=== PATIENT | male | born 1985 | race Caucasian/White ===

== ENCOUNTER → 2017-09-08 | Outpatient (CLI) | payer OTHER ==
--- NOTE | 2017-09-08 10:58 | Diagnostic Imaging Report ---
Three views of the right knee. INDICATION: Right knee pain. Injury. FINDINGS: No fracture, dislocation or radiopaque foreign body. No suprapatellar effusion seen. The articular surfaces appear intact. IMPRESSION: Unremarkable exam. Dictated by: Dictated on workstation # [id number]
== END ==
LOC: RAD 10:07
PROVIDERS: ATTEND Nurse Practitioner Family
DX: S89.91XA Unspecified injury of right lower leg, initial encounter (principal)
CPT/HCPCS: 73562

== ENCOUNTER → 2017-09-17 | Outpatient (CLI) | payer OTHER ==
--- NOTE | 2017-09-17 11:36 | Diagnostic Imaging Report ---
EXAMINATION: Magnetic resonance imaging of the right knee without intravenous contrast DATE: September 17, 2017. COMPARISON: Right knee radiographs September 08, 2017. INDICATION: 32-year-old male, right knee pain. TECHNIQUE: Multiplanar, multisequence non contrast enhanced MR imaging was accomplished. FINDINGS: MENISCI: There is a multiloculated ganglion cyst adjacent to the anterior horn of the medial meniscus most likely reflecting a parameniscal cyst measuring 16 x 8 x 9 mm in size. This is compatible with an adjacent tear of the anterior horn of the medial meniscus. The medial meniscus is otherwise intact. The lateral meniscus is intact. LIGAMENTS AND TENDONS: The anterior and posterior cruciate ligaments are intact. The medial collateral ligament is intact. The iliotibial band, mid third lateral capsular ligament, fibular collateral ligament, biceps femoris tendon and conjoined tendon are intact. The quadriceps tendon and patella ligament are intact. JOINT: There is a focal area of increased signal within the cartilage of the medial patellar facet without identified surface defect which may potentially correlate with an area of chondromalacia. The medial and lateral compartment cartilage is intact. There is no knee joint effusion, prominent synovitis, or intra-articular body. BONE: There is unremarkable bone marrow signal. Specifically, negative for fracture, osteomyelitis, osteonecrosis, or marrow replacing process. BURSAE AND SOFT TISSUES: There is no Kaye's cyst. There is a ganglion cyst adjacent to the posterior knee joint capsule measuring 8 x 4 x 9 mm in size. IMPRESSION: 1. Multiloculated parameniscal cyst adjacent to the anterior horn of the medial meniscus compatible with an adjacent tear of the anterior horn of the medial meniscus with the parameniscal cyst measuring 16 x 8 x 9 mm in size. 2. Intact lateral meniscus. 3. Intact anterior and posterior cruciate ligaments. Additional ligaments and tendons are intact. 4. Small focal area of increased signal in the cartilage of the medial patellar facet without identified overlying surface defect. This may potentially correlate with an area of chondromalacia. Otherwise intact articular cartilage. No knee joint effusion. 5. No acute fracture or bone contusion. Dictated by: Dictated on workstation # [id number]
== END ==
LOC: RAD 09:03
PROVIDERS: ATTEND Nurse Practitioner Family
DX: M23.031 Cystic meniscus, other medial meniscus, right knee (principal)
CPT/HCPCS: 73721

== ENCOUNTER → 2019-03-11 | Outpatient (CLI) | payer OTHER ==
--- NOTE | 2019-03-11 14:40 | Diagnostic Imaging Report ---
PROCEDURE: CT head without contrast. TECHNIQUE: Multiple contiguous axial images were obtained through the brain without the use of intravenous contrast. Auto Exposure Controls were utilized during the CT exam to meet ALARA standards for radiation dose reduction. INDICATION: Pos head pain, nausea, vomiting, dizziness with blurred vision. Exam compared with 07/27/2013. There is no hemorrhage, hydrocephalus, edema, mass, mass effect or evidence for elevated intracranial pressures. The orbits, sinuses and calvarium unremarkable. No acute finding. IMPRESSION: Stable normal CT head. Report was called to Christi/surveillance sensor officer of Nina Wright APRN by garrick at 2:39 p.m. Dictated by: Dictated on workstation # [id number]
== END ==
LOC: RAD 13:54
PROVIDERS: ATTEND Nurse Practitioner Family
DX: H53.8 Other visual disturbances (principal); R51 Headache; R11.2 Nausea with vomiting, unspecified
CPT/HCPCS: 70450

== ENCOUNTER 2021-01-03 13:01 | Emergency (ER) | payer OTHER ==
[~2021-01-03] VITALS: Ht 185 cm; Wt 90.7 kg
[2021-01-03 13:27] LABS: BASOPHILS # (AUTO) 0.1 10^3/uL (0.0-0.1); BASOPHILS % (AUTO) 1 % (0-10); EOSINOPHILS # (AUTO) 0.2 10^3/uL (0.0-0.3); EOSINOPHILS % (AUTO) 4 % (0-10); HEMATOCRIT 47 % (40-54); HEMOGLOBIN 15.5 g/dL (13.3-17.7); LYMPHOCYTES % (AUTO) 33 % (12-44); MEAN CORPUSCULAR HEMOGLOBIN 32 pg (25-34); MEAN CORPUSCULAR HGB CONC 33 g/dL (32-36); MEAN CORPUSCULAR VOLUME 95 fL (80-99); MEAN PLATELET VOLUME 10.1 fL (9.0-12.2); MONOCYTES # (AUTO) 0.8 10^3/uL (0.0-1.0); MONOCYTES % (AUTO) 13 % (0-12); NEUTROPHILS # (AUTO) 2.9 10^3/uL (1.8-7.8); NEUTROPHILS % (AUTO) 49 % (42-75); PLATELET COUNT 220 10^3/uL (130-400); WHITE BLOOD COUNT 5.9 10^3/uL (4.3-11.0)
[2021-01-03] MEDS ORDERED: IBUPROFEN 800 MG (MOTRIN) TAB PO STA (13:33)
[2021-01-03 13:39] LABS: ALBUMIN 4.3 GM/DL (3.2-4.5); CHLORIDE 104 MMOL/L (98-107); POTASSIUM 4.3 MMOL/L (3.6-5.0); SODIUM 139 MMOL/L (135-145)
[2021-01-03 13:40] LABS: CALCIUM 8.9 MG/DL (8.5-10.1)
[2021-01-03 13:41] LABS: BILIRUBIN,URINE NEGATIVE (NEGATIVE); CLARITY,URINE CLEAR; COLOR,URINE DARK YELLOW; GLUCOSE, URINE (UA) NEGATIVE (NEGATIVE); KETONES,URINE NEGATIVE (NEGATIVE); LEUKOCYTE ESTERASE ,URINE NEGATIVE (NEGATIVE); NITRITE,URINE NEGATIVE (NEGATIVE); PH,URINE 5.5 (5-9); PROTEIN,URINE NEGATIVE (NEGATIVE)
[2021-01-03 13:42] LABS: GLUCOSE 83 MG/DL (70-105); TOTAL PROTEIN 7.4 GM/DL (6.4-8.2)
[2021-01-03 13:43] LABS: BILIRUBIN,TOTAL 1.4 MG/DL (0.1-1.0); CARBON DIOXIDE 25 MMOL/L (21-32)
[2021-01-03 13:45] LABS: ALKALINE PHOSPHATASE 97 U/L (40-136); CREATININE SERUM 1.09 MG/DL (0.60-1.30); GFR ESTIMATED > 60
[2021-01-03 13:46] LABS: BUN/CREATININE RATIO 14
[2021-01-03 13:47] LABS: BACTERIA,URINE NEGATIVE /HPF
[2021-01-03 13:48] LABS: ALANINE AMINOTRANSFERASE 19 U/L (0-55)
--- NOTE | 2021-01-03 13:51 | ED GU-Male ---
General Chief Complaint: Male Reproductive Stated Complaint: L TESTICLE PAIN Nursing Triage Note: ARRIVED VIA AMB TO ROOM 08. X2 WEEKS HE HAS HAD LEFT TESTICLE SWELLING AND PAIN. IS ON 2ND DOSE OF ROCEPHIN AND DOXY AND STATES IT IS WORSE. [facility] FOR A ULTRA SOUND. History of Present Illness Date Seen by Provider: Jan 03, 2021 Time Seen by Provider: 13:05 Initial Comments 35-year-old male presents for left testicular pain that is been present for approximately 2 weeks. He received 1 IM injection of Rocephin and started doxycycline at that time. Hip symptoms were not improving and 4 days ago he was started on a 2nd round of doxycycline. He had increased pain while trying to walk today that is radiating down his left leg. He reports having epididymitis in the past several years ago. He denies any dysuria or hematuria. No ylla-lvh-zbtmhit pain medicine prior to arrival. Patient denies any history of STIs, hernia or testicular torsion in the past. He has not done any heavy lifting or aggressive physical activity. Timing/Duration: intermittent Severity/Quality: moderate Location: scrotal Radiation: groin (left), other (Left leg) Activities at Onset: none Prior Genitourinary Problems: none Sexual [place] History: single partner Associated Symptoms: denies symptoms Allergies and Home Medications Allergies Coded Allergies: No Known Drug Allergies (Unverified , 01/03/21) Patient Home Medication List Home Medication List Reviewed: Yes Review of Systems Review of Systems Constitutional: no symptoms reported, see HPI Gastrointestinal: no symptoms reported, see HPI; No abdominal pain, No nausea, No vomiting Genitourinary: see HPI, pain (Left testicular) All Other Systemes Reviewed Negative Unless Noted: Yes Past Peufryk-Cmuipa-Hraknm Hx Past Med/Social Hx: Reviewed Nursing Past Med/Soc Hx Patient Social History Alcohol Use: Occasionally Uses Smoking Status: Former Smoker Recent Infectious Disease Expo: No Recent Hopitalizations: No Seasonal Allergies Seasonal Allergies: No Past Medical History Surgeries: Yes Orthopedic Respiratory: No Cardiac: No Neurological: No Genitourinary: No Gastrointestinal: No Musculoskeletal: No Endocrine: No HEENT: No Cancer: No Psychosocial: No Integumentary: No Physical Exam Vital Signs Vital Signs - First Documented 01/03/21 13:03 Temp 37.0 Pulse 72 Resp 16 B/P (MAP) 130/77 (94) Pulse Ox 97 O2 Delivery Room Air Capillary Refill : Less Than 3 Seconds Height, Weight, BMI Height: '" Weight: lbs. oz. kg; 26.00 BMI Method: General Appearance: WD/WN, no apparent distress Cardiovascular: normal peripheral pulses, regular rate, rhythm, no edema Respiratory: chest non-tender, lungs clear, normal breath sounds Gastrointestinal: normal bowel sounds, non tender, soft Male: normal genitalia; No inguinal tenderness; testicular tenderness (Left) Neurologic/Psychiatric: no motor/sensory deficits, alert, normal mood/affect, oriented x 3 Skin: normal color, warm/dry Progress/Results/Core Measures Suspected Sepsis Recent Fever Within 48 Hours: No Infection Criteria Present: Documented Infection New/Unexplained Altered Menta: No Sepsis Screen: No Definite Risk SIRS Temperature: Pulse: 72 Respiratory Rate: 16 Laboratory Tests 01/03/21 13:20: White Blood Count 5.9 Blood Pressure 130 /77 Mean: 94 Laboratory Tests 01/03/21 13:20: Creatinine 1.09, Platelet Count 220, Total Bilirubin 1.4H Results/Orders Lab Results Laboratory Tests Test 01/03/21 13:20 01/03/21 13:27 Range/Units White Blood Count 5.9 4.3-11.0 10^3/uL Red Blood Count 4.90 4.30-5.52 10^6/uL Hemoglobin 15.5 13.3-17.7 g/dL Hematocrit 47 40-54 % Mean Corpuscular Volume 95 80-99 fL Mean Corpuscular Hemoglobin 32 25-34 pg Mean Corpuscular Hemoglobin Concent 33 32-36 g/dL Red Cell Distribution Width 12.0 10.0-14.5 % Platelet Count 220 130-400 10^3/uL Mean Platelet Volume 10.1 9.0-12.2 fL Immature Granulocyte % (Auto) 0 % Neutrophils (%) (Auto) 49 42-75 % Lymphocytes (%) (Auto) 33 12-44 % Monocytes (%) (Auto) 13 H 0-12 % Eosinophils (%) (Auto) 4 0-10 % Basophils (%) (Auto) 1 0-10 % Neutrophils # (Auto) 2.9 1.8-7.8 10^3/uL Lymphocytes # (Auto) 2.0 1.0-4.0 10^3/uL Monocytes # (Auto) 0.8 0.0-1.0 10^3/uL Eosinophils # (Auto) 0.2 0.0-0.3 10^3/uL Basophils # (Auto) 0.1 0.0-0.1 10^3/uL Immature Granulocyte # (Auto) 0.0 0.0-0.1 10^3/uL Sodium Level 139 135-145 MMOL/L Potassium Level 4.3 3.6-5.0 MMOL/L Chloride Level 104 98-107 MMOL/L Carbon Dioxide Level 25 21-32 MMOL/L Anion Gap 10 5-14 MMOL/L Blood Urea Nitrogen 15 7-18 MG/DL Creatinine 1.09 0.60-1.30 MG/DL Estimat Glomerular Filtration Rate > 60 BUN/Creatinine Ratio 14 Glucose Level 83 70-105 MG/DL Calcium Level 8.9 8.5-10.1 MG/DL Corrected Calcium 8.7 8.5-10.1 MG/DL Total Bilirubin 1.4 H 0.1-1.0 MG/DL Aspartate Amino Transf (AST/SGOT) 23 5-34 U/L Alanine Aminotransferase (ALT/SGPT) 19 0-55 U/L Alkaline Phosphatase 97 40-136 U/L C-Reactive Protein High Sensitivity 0.02 0.00-0.50 MG/DL Total Protein 7.4 6.4-8.2 GM/DL Albumin 4.3 3.2-4.5 GM/DL Urine Color DARK YELLOW Urine Clarity CLEAR Urine pH 5.5 5-9 Urine Specific [place] >=1.030 1.016-1.022 Urine Protein NEGATIVE NEGATIVE Urine Glucose (UA) NEGATIVE NEGATIVE Urine Ketones NEGATIVE NEGATIVE Urine Nitrite NEGATIVE NEGATIVE Urine Bilirubin NEGATIVE NEGATIVE Urine Urobilinogen 0.2 < = 1.0 MG/DL Urine Leukocyte Esterase NEGATIVE NEGATIVE Urine RBC (Auto) NEGATIVE NEGATIVE Urine RBC NONE /HPF Urine WBC NONE /HPF Urine Crystals NONE /LPF Urine Bacteria NEGATIVE /HPF Urine Casts NONE /LPF Urine Mucus NEGATIVE /LPF Urine Culture Indicated NO My Orders Orders - ELAN MANDEL Cbc With Automated Diff (01/03/21 13:16) Comprehensive Metabolic Panel (01/03/21 13:16) Hs C Reactive Protein (01/03/21 13:16) Ua Culture If Indicated (01/03/21 13:16) Us Scrotum (Testicle) [id number] (01/03/21 13:33) Ibuprofen Tablet (Motrin Tablet) (01/03/21 13:33) Neis John Dna Urine Test (01/03/21 14:30) Chlamydia Trachomatis Urine (01/03/21 14:30) Vital Signs/I&O 01/03/21 01/03/21 13:03 14:34 Temp 37.0 37.0 Pulse 72 72 Resp 16 16 B/P (MAP) 130/77 (94) 130/77 (94) Pulse Ox 97 97 O2 Delivery Room Air Capillary Refill : Less Than 3 Seconds Blood Pressure Mean: 94 Diagnostic Imaging Diagonstic Imaging: Ultrasound Comments NAME: [facility] REC#: [id number] PT STATUS: DEP ER : 1985 PHYSICIAN: ELAN MANDEL ADMIT DATE: 01/03/21/ER Signed Date of Exam:01/03/21 US SCROTUM (Testicle) [id number] PROCEDURE: US Scrotum. TECHNIQUE: Multiple real-time grayscale images were obtained over the scrotum in various projections bilaterally. INDICATION: Left testicular pain for 2 weeks. The right testicle measures 5.5 x 2.6 x 3.5 cm and the left testicle measures 5.5 x 2.6 x 3.8 cm. Both testes show homogeneous echotexture. No discrete testicular mass is seen. There is blood flow to both testes. Epididymides are unremarkable. There are small bilateral hydroceles. No varicocele is detected. IMPRESSION: 1. No evidence of testicular mass or vascular compromise. 2. Small bilateral hydroceles. Dictated by: Dictated on workstation # [id number] Dict: 01/03/21 1449 Trans: 01/03/21 1553 [facility] [id number] Interpreted by: CARO HINSON MD Electronically signed by: CARO HINSON MD 01/03/21 1550 Reviewed: Reviewed by Me Departure Impression Primary Impression: Left testicular pain Disposition: 01 HOME, SELF-CARE Condition: Improved Departure-Patient Inst. Decision time for Depature: 14:25 Referrals: TAYLOR BENDER MD (PCP/Family) Primary Care Physician LORENZA ACEVEDO MD Patient Instructions: Epididymitis (DC) Add. Discharge Instructions: Appt with Dr. Rivera Mon 01/08 at 3:45 pm. If your symptoms improve, you can call and cancel your appt. Increase water intake 16 oz every 2 hours while awake. Alternate between Tylenol 650 mg and ibuprofen 600 mg every 4 hours for pain or swelling. Continue taking your antibiotics as prescribed. Follow-up with your primary care provider if symptoms are not improving or worsen. Return to the emergency department for new, urgent healthcare needs. All discharge instructions reviewed with patient and/or family. Voiced understanding. ELAN MANDEL Jan 03, 2021 13:51
[2021-01-03 14:34] VITALS: BP 130/77
--- NOTE | 2021-01-03 14:53 | Diagnostic Imaging Report ---
PROCEDURE: US Scrotum. TECHNIQUE: Multiple real-time grayscale images were obtained over the scrotum in various projections bilaterally. INDICATION: Left testicular pain for 2 weeks. The right testicle measures 5.5 x 2.6 x 3.5 cm and the left testicle measures 5.5 x 2.6 x 3.8 cm. Both testes show homogeneous echotexture. No discrete testicular mass is seen. There is blood flow to both testes. Epididymides are unremarkable. There are small bilateral hydroceles. No varicocele is detected. IMPRESSION: 1. No evidence of testicular mass or vascular compromise. 2. Small bilateral hydroceles. Dictated by: Dictated on workstation # [id number]
== END 2021-01-03 14:34 | disposition home or self-care (01) ==
LOC: EDUNIT# 13:01 → ER 13:02
DX: N50.812 Left testicular pain (principal); Z87.891 Personal history of nicotine dependence
CPT/HCPCS: 36415; 76870; 80053; 81000; 85025; 86141; 87491; 87591

== ENCOUNTER 2022-08-02 08:31 | Day surgery (SDC) | payer OTHER ==
[~2022-08-02] VITALS: Ht 185.4 cm; Wt 90.7 kg
[2022-08-02] VITALS (9 sets, daily range): BP systolic 120–148; BP diastolic 52–82
[2022-08-02] MEDS ORDERED: HOLD METFORMIN - RECEIVED CONTRAST 20 ML VIAL IV SCH (09:30)
[2022-08-02] MEDS ORDERED: IOHEXOL 350 MG/ML 100 ML (OMNIPAQUE 350) VIAL IV ONE (09:30)
[2022-08-02] MEDS ORDERED: NS 100 ML (IVPB) BAG IV ONE (09:30)
--- NOTE | 2022-08-02 09:31 | ED Abdominal Pain ---
General Chief Complaint: Abdominal/GI Problems Stated Complaint: ABD PAIN Nursing Triage Note: c/o abdominal pain that started last night around midnight and lasted until around 4 am whe he finally was able to go back to sleep. sx included nausea, right lower abdominal pain, gas pain upper and lower. 5/10 on a pain scale currently. Source of Information: Patient Exam Limitations: No Limitations History of Present Illness Date Seen by Provider: Aug 02, 2022 Time Seen by Provider: 09:20 Initial Comments 37-year-old male presents the emergency department today for right lower abdominal pain. Symptoms started at about midnight and his mid lower abdominal pain and eventually settled in his right lower abdomen. He states the pain was severe at about 4 AM when it went off some. At that time was about an 8 out of 10. At the time of his presentation he rates it about a 3 out of 10. Described as sharp stabbing without radiation. No aggravating or alleviating factors. He has nausea without any vomiting. He states he feels like he has have a bowel movement but cannot tell. No testicular pain, penile symptoms. No changes in urination. He has never had similar symptoms in the past. Has had no surgeries. Allergies and Home Medications Allergies Coded Allergies: No Known Drug Allergies (Unverified , 01/03/21) Patient Home Medication List Home Medication List Reviewed: Yes Hydrocodone Bit/Acetaminophen (HYDROcodone/APAP 5 MG/325 MG TAB) 1 Tab Tab, 1 TAB PO Q8H PRN for PAIN-MODERATE (5-7) Prescribed by: DARIN LOPEZ on 08/02/22 [id number] Review of Systems Review of Systems Constitutional: no symptoms reported EENTM: No Symptoms Reported Respiratory: No Symptoms Reported Cardiovascular: No Symptoms Reported Gastrointestinal: Abdominal Pain, Nausea Genitourinary: No Symptoms Reported Musculoskeletal: no symptoms reported Skin: no symptoms reported Psychiatric/Neurological: No Symptoms Reported Endocrine: No Symptoms Reported Hematologic/Lymphatic: No Symptoms Reported Past Dqbofqy-Oixcxh-Piyxnn Hx Patient Social History Tobacco Use?: No Use of E-Cig and/or Vaping dev: No Substance use?: No Alcohol Use?: Yes Alcohol type: Beer, Hard Liquor Alcohol Frequency: Once in a while Pt feels they are or have been: No Immunizations Up To Date Influenza Vaccine Up-to-Date: No; Not Current First/Initial COVID19 Vaccinat: 2020 Second COVID19 Vaccination Joaquim: 2020 Third COVID19 Vaccination Date: 2020 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 Hand: moderntoi Seasonal Allergies Seasonal Allergies: No Past Medical History Surgery/Hospitalization HX: migraine sx left knee scope Surgeries: Yes Orthopedic Respiratory: No Cardiac: No Neurological: No Genitourinary: No Gastrointestinal: No Musculoskeletal: No Endocrine: No HEENT: No Cancer: No Psychosocial: No Integumentary: No Family Medical History Reviewed Nursing Family Hx No Pertinent Family Hx Physical Exam Vital Signs Vital Signs - First Documented 08/02/22 09:07 Temp 37.2 Pulse 66 Resp 18 B/P (MAP) 128/81 (97) Pulse Ox 97 O2 Delivery Room Air Capillary Refill : Less Than 3 Seconds Height/Weight/BMI Height: '" Weight: lbs. oz. kg; 26.00 BMI Method: General Appearance: WD/WN, no apparent distress HEENT: normal ENT inspection, pharynx normal Neck: non-tender, full range of motion, supple, normal inspection Respiratory: chest non-tender, lungs clear, normal breath sounds, no respiratory distress, no accessory muscle use Cardiovascular: regular rate, rhythm, no edema, no gallop, no JVD, no murmur Gastrointestinal: normal bowel sounds, soft, no organomegaly, tenderness (Tenderness palpation of right lower abdomen with voluntary guarding. No rebound tenderness. No mass organomegaly. No skin changes. Negative obturator, Rovsing, heel tap) Extremities: normal range of motion, non-tender, normal inspection, no pedal edema, no calf tenderness Back: normal inspection, no CVA tenderness, no vertebral tenderness Neurologic/Psychiatric: alert, normal mood/affect, oriented x 3 Skin: normal color, warm/dry Lymphatic: no adenopathy Progress/Results/Core Measures Results/Orders Lab Results Laboratory Tests Test 08/02/22 09:25 08/02/22 09:31 Range/Units White Blood Count 12.2 H 4.3-11.0 10^3/uL Red Blood Count 4.89 4.30-5.52 10^6/uL Hemoglobin 15.6 13.3-17.7 g/dL Hematocrit 45 40-54 % Mean Corpuscular Volume 93 80-99 fL Mean Corpuscular Hemoglobin 32 25-34 pg Mean Corpuscular Hemoglobin Concent 34 32-36 g/dL Red Cell Distribution Width 12.2 10.0-14.5 % Platelet Count 267 130-400 10^3/uL Mean Platelet Volume 9.8 9.0-12.2 fL Immature Granulocyte % (Auto) 0 % Neutrophils (%) (Auto) 73 42-75 % Lymphocytes (%) (Auto) 16 12-44 % Monocytes (%) (Auto) 10 0-12 % Eosinophils (%) (Auto) 1 0-10 % Basophils (%) (Auto) 0 0-10 % Neutrophils # (Auto) 8.9 H 1.8-7.8 10^3/uL Lymphocytes # (Auto) 1.9 1.0-4.0 10^3/uL Monocytes # (Auto) 1.2 H 0.0-1.0 10^3/uL Eosinophils # (Auto) 0.1 0.0-0.3 10^3/uL Basophils # (Auto) 0.0 0.0-0.1 10^3/uL Immature Granulocyte # (Auto) 0.0 0.0-0.1 10^3/uL Sodium Level 139 135-145 MMOL/L Potassium Level 3.9 3.6-5.0 MMOL/L Chloride Level 105 98-107 MMOL/L Carbon Dioxide Level 24 21-32 MMOL/L Anion Gap 10 5-14 MMOL/L Blood Urea Nitrogen 17 7-18 MG/DL Creatinine 1.10 0.60-1.30 MG/DL Estimat Glomerular Filtration Rate 89 BUN/Creatinine Ratio 15 Glucose Level 96 70-105 MG/DL Calcium Level 9.7 8.5-10.1 MG/DL Corrected Calcium 9.4 8.5-10.1 MG/DL Total Bilirubin 1.2 H 0.1-1.0 MG/DL Aspartate Amino Transf (AST/SGOT) 18 5-34 U/L Alanine Aminotransferase (ALT/SGPT) 20 0-55 U/L Alkaline Phosphatase 65 40-136 U/L Total Protein 7.3 6.4-8.2 GM/DL Albumin 4.4 3.2-4.5 GM/DL Urine Color YELLOW Urine Clarity CLEAR Urine pH 6.0 5-9 Urine Specific [place] 1.020 1.016-1.022 Urine Protein NEGATIVE NEGATIVE Urine Glucose (UA) NEGATIVE NEGATIVE Urine Ketones NEGATIVE NEGATIVE Urine Nitrite NEGATIVE NEGATIVE Urine Bilirubin NEGATIVE NEGATIVE Urine Urobilinogen 0.2 < = 1.0 MG/DL Urine Leukocyte Esterase NEGATIVE NEGATIVE Urine RBC (Auto) NEGATIVE NEGATIVE Urine RBC NONE /HPF Urine WBC RARE /HPF Urine Crystals NONE /LPF Urine Bacteria NEGATIVE /HPF Urine Casts NONE /LPF Urine Mucus NEGATIVE /LPF Urine Culture Indicated NO My Orders Orders - ERASMO VALDOVINOS DO Comprehensive Metabolic Panel (08/02/22 09:27) Cbc With Automated Diff (08/02/22:) Ua Culture If Indicated (08/02/22:) Ct Abdomen/Pelvis W (08/02/22:) Iohexol Injection (Omnipaque 350 Mg/Ml 1 (08/02/22:30) Received Contrast (Hold Metformin- Contr (08/02/22:) Ns (Ivpb) (Sodium Chloride 0.9% Ivpb Bag (08/02/22:) Medications Given in ED Vital Signs/I&O 08/02/22 09:07 Temp 37.2 Pulse 66 Resp 18 B/P (MAP) 128/81 (97) Pulse Ox 97 O2 Delivery Room Air Blood Pressure Mean: [address] abdomen/pelvis with IV contrast: Appendicitis without perforation. There is an appendicolith. Departure Communication (Admissions) Spoke to Dr Lopez, accepts admission for appendicitis. No abx at this time per his request as they will give prior to surgery. Patient is stable and non toxic. Patient has been in sinus rhythm (90s. He is nontoxic. I spoke with Dr. Lopez accepts patient in admission. He request no antibiotics at this time as I will give just prior to the operation. Patient is notified and comfortable agreeable to admission for appendectomy. Impression Primary Impression: Appendicitis Qualified Codes: K35.30 - Acute appendicitis with localized peritonitis, without perforation or gangrene Disposition: ADMITTED INPATIENT Condition: Stable Admissions Decision to Admit Reason: Admit from ER (General) Departure-Patient Inst. Referrals: TAYLOR BENDER MD (PCP/Family) Primary Care Physician Scripts Hydrocodone Bit/Acetaminophen (HYDROcodone/APAP 5 MG/325 MG TAB) 1 Tab Tab 1 TAB PO Q8H PRN for PAIN-MODERATE (5-7), #14 TAB Prov: DARIN LOPEZ DO 08/02/22 ERASMO VALDOVINOS DO Aug 02, 2022 09:31
[2022-08-02 09:35] LABS: BASOPHILS % (AUTO) 0 % (0-10); EOSINOPHILS # (AUTO) 0.1 10^3/uL (0.0-0.3); EOSINOPHILS % (AUTO) 1 % (0-10); HEMATOCRIT 45 % (40-54); HEMOGLOBIN 15.6 g/dL (13.3-17.7); LYMPHOCYTES # (AUTO) 1.9 10^3/uL (1.0-4.0); LYMPHOCYTES % (AUTO) 16 % (12-44); MEAN CORPUSCULAR HEMOGLOBIN 32 pg (25-34); MEAN CORPUSCULAR HGB CONC 34 g/dL (32-36); MEAN CORPUSCULAR VOLUME 93 fL (80-99); MEAN PLATELET VOLUME 9.8 fL (9.0-12.2); MONOCYTES # (AUTO) 1.2 10^3/uL (0.0-1.0); MONOCYTES % (AUTO) 10 % (0-12); NEUTROPHILS # (AUTO) 8.9 10^3/uL (1.8-7.8); NEUTROPHILS % (AUTO) 73 % (42-75); PLATELET COUNT 267 10^3/uL (130-400); WHITE BLOOD COUNT 12.2 10^3/uL (4.3-11.0)
[2022-08-02 09:42] LABS: ALBUMIN 4.4 GM/DL (3.2-4.5)
[2022-08-02 09:42] LABS: BILIRUBIN,URINE NEGATIVE (NEGATIVE); CLARITY,URINE CLEAR; COLOR,URINE YELLOW; GLUCOSE, URINE (UA) NEGATIVE (NEGATIVE); KETONES,URINE NEGATIVE (NEGATIVE); LEUKOCYTE ESTERASE ,URINE NEGATIVE (NEGATIVE); NITRITE,URINE NEGATIVE (NEGATIVE); PROTEIN,URINE NEGATIVE (NEGATIVE)
[2022-08-02 09:43] LABS: POTASSIUM 3.9 MMOL/L (3.6-5.0)
[2022-08-02 09:44] LABS: CALCIUM 9.7 MG/DL (8.5-10.1)
[2022-08-02 09:45] LABS: TOTAL PROTEIN 7.3 GM/DL (6.4-8.2)
[2022-08-02 09:47] LABS: BILIRUBIN,TOTAL 1.2 MG/DL (0.1-1.0)
[2022-08-02 09:49] LABS: CREATININE SERUM 1.1 MG/DL (0.60-1.30)
[2022-08-02 09:53] LABS: BACTERIA,URINE NEGATIVE /HPF; WBC,URINE RARE /HPF
--- NOTE | 2022-08-02 10:38 | Diagnostic Imaging Report ---
EXAMINATION: CT abdomen and pelvis with intravenous contrast. TECHNIQUE: Multiple contiguous axial images were obtained through the abdomen and pelvis after the uneventful administration of intravenous contrast. All CT scans use one or more of the following dose optimizing techniques: automated exposure control, MA and/or KvP adjustment based on patient size and exam type or iterative reconstruction. HISTORY: RLQ pain COMPARISON: None available. FINDINGS: Lung bases: The lung bases are clear. Solid organs: The liver is normal without focal lesion. The gallbladder is normal. There is no biliary ductal dilation. Pancreas is normal. There is an indeterminate 1.7 cm lesion within the spleen. Adrenal glands are normal. The kidneys are normal without hydronephrosis. Bowel: The stomach and small bowel are normal without obstruction. The colon is unremarkable. There is mild dilation and wall thickening of the appendix with a focal stone at the origin. Appendix measures up to 0.9 cm with mild surrounding inflammatory stranding. Peritoneum: There is no intraperitoneal free fluid or free air. No suspicious lymphadenopathy. Vasculature: Normal without aneurysm. Musculoskeletal: No suspicious osseous lesion or compression fracture. Pelvis: The prostate gland is normal. The urinary bladder is normal. IMPRESSION: 1. Findings concerning for acute appendicitis without abscess or free air. Dictated by: Dictated on workstation # [id number]
--- NOTE | 2022-08-02 11:39 | History & Physical-Surgical ---
CARLOZ MCKEE 08/02/22 1139: History of Present Illness History of Present Illness Reason for visit/HPI 37 year old male with no known significant past medical history seen in [facility] ER with a chief complain of RLQ pain. Patient states that the pain started around midnight and increased in intensity until 0400. At that time pain lessened slightly and has stayed constant since. Pain was initially midline and RLQ, but then increased in intensity in the RLQ. Pain was initially a stabbing sharp pain, but has since became a deep ache. Patient has associated symptoms of nausea, dry heaving, and chills. Patient states that he did not try any medication to alleviate his pain, but did try sprite to see if it would settle his stomach. Patient states that movement and touch make his pain worse. Patient rates the worst of his pain at a 8/10 and around a 4/10 at rest. In the ER, patient underwent CT scan of the abdomen and pelvis which showed acute appendicitis without abscess or free air. Date of Admission 08/02/2022 Date Seen by a Provider: Aug 02, 2022 Time Seen by a Provider: 11:20 I consulted on this patient on 08/02/22 11:33 Attending Physician Sanam Amin MD Admitting Physician Admitting Physician: Attending Physician: Consult Allergies and Home Medications Allergies Coded Allergies: No Known Drug Allergies (Unverified , 01/03/21) Patient Home Medication List Home Medication List Reviewed: Yes Past Grfmmuj-Vgnern-Sbsxww Hx Patient Social History Marrital Status: Employed/Student: employed Tobacco Use?: No Smoking Status: Former Smoker Smokeless type used: Chew Smokeless Tobacco Frequency: Former User Use of E-Cig and/or Vaping dev: No Substance use?: No Alcohol Use?: Yes Alcohol type: Beer, Hard Liquor Alcohol Frequency: Once in a while Pt feels they are or have been: No Immunizations Up To Date First/Initial COVID19 Vaccinat: 2020 Second COVID19 Vaccination Joaquim: 2020 Tetanus Booster (TDap): Less Than 5 Years Seasonal Allergies Seasonal Allergies: No Current Status Advance Directives: No Communicates: Verbally Primary Language: [place]er Preferred Spoken Language: [place] Sensory deficits: Vision impairment Implanted or Applied Medical D: None Past Medical History Surgeries: Orthopedic, Vasectomy Currently Using CPAP: No Currently Using BIPAP: No Loss of Vision: Denies Family Medical History Reviewed Nursing Family Hx Diabetes (maternal side) Review of Systems Constitutional: chills; No diaphoresis EENTM: No blurred vision, No double vision, No vision loss Respiratory: No cough, No dyspnea on exertion Cardiovascular: No chest pain, No palpitations Gastrointestinal: RLQ; No constipation, No diarrhea; nausea; No vomiting Genitourinary: No discharge, No dysuria, No frequency Musculoskeletal: No joint pain, No joint swelling Skin: No change in color, No pruritus Psychiatric/Neurological: Denies Anxiety, Denies Depressed Physical Exam Vital Signs Vital Signs - First Documented 08/02/22 09:07 Temp 37.2 Pulse 66 Resp 18 B/P (MAP) 128/81 (97) Pulse Ox 97 O2 Delivery Room Air Capillary Refill : Less Than 3 Seconds Height, Weight, BMI Height: '" Weight: lbs. oz. kg; 26.00 BMI Method: General Appearance: No Apparent Distress, WD/WN HEENT: PERRL/EOMI Neck: Non Tender, Supple Respiratory: Chest Non Tender, Lungs Clear, Normal Breath Sounds, No Accessory Muscle Use, No Respiratory Distress Cardiovascular: Regular Rate, Rhythm, No Murmur, Normal Peripheral Pulses Gastrointestinal: Soft, Tenderness (RLQ; (+) Mcburney, Rebound ) Rectal: Deferred Extremity: Non Tender, No Calf Tenderness, No Pedal Edema Neurologic/Psychiatric: Alert, Oriented x3, Normal Mood/Affect Skin: Normal Color, Warm/Dry Data Review Labs Laboratory Tests 08/02/22 09:25: White Blood Count 12.2H, Red Blood Count 4.89, Hemoglobin 15.6, Hematocrit 45, Mean Corpuscular Volume 93, Mean Corpuscular Hemoglobin 32, Mean Corpuscular Hemoglobin Concent 34, Red Cell Distribution Width 12.2, Platelet Count 267, Mean Platelet Volume 9.8, Immature Granulocyte % (Auto) 0, Neutrophils (%) (Auto) 73, Lymphocytes (%) (Auto) 16, Monocytes (%) (Auto) 10, Eosinophils (%) (Auto) 1, Basophils (%) (Auto) 0, Neutrophils # (Auto) 8.9H, Lymphocytes # (Auto) 1.9, Monocytes # (Auto) 1.2H, Eosinophils # (Auto) 0.1, Basophils # (Auto) 0.0, Immature Granulocyte # (Auto) 0.0, Sodium Level 139, Potassium Level 3.9, Chloride Level 105, Carbon Dioxide Level 24, Anion Gap 10, Blood Urea Nitrogen 17, Creatinine 1.10, Estimat Glomerular Filtration Rate 89, BUN/Creatinine Ratio 15, Glucose Level 96, Calcium Level 9.7, Corrected Calcium 9.4, Total Bilirubin 1.2H, Aspartate Amino Transf (AST/SGOT) 18, Alanine Aminotransferase (ALT/SGPT) 20, Alkaline Phosphatase 65, Total Protein 7.3, Albumin 4.4 08/02/22 09:31: Urine Color YELLOW, Urine Clarity CLEAR, Urine pH 6.0, Urine Specific Rosamond 1.020, Urine Protein NEGATIVE, Urine Glucose (UA) NEGATIVE, Urine Ketones NEGATIVE, Urine Nitrite NEGATIVE, Urine Bilirubin NEGATIVE, Urine Urobilinogen 0.2, Urine Leukocyte Esterase NEGATIVE, Urine RBC (Auto) NEGATIVE, Urine RBC NONE, Urine WBC RARE, Urine Crystals NONE, Urine Bacteria NEGATIVE, Urine Casts NONE, Urine Mucus NEGATIVE, Urine Culture Indicated NO Radiology CT ABDOMEN/PELVIS W EXAMINATION: CT abdomen and pelvis with intravenous contrast. TECHNIQUE: Multiple contiguous axial images were obtained through the abdomen and pelvis after the uneventful administration of intravenous contrast. All CT scans use one or more of the following dose optimizing techniques: automated exposure control, MA and/or KvP adjustment based on patient size and exam type or iterative reconstruction. HISTORY: RLQ pain COMPARISON: None available. FINDINGS: Lung bases: The lung bases are clear. Solid organs: The liver is normal without focal lesion. The gallbladder is normal. There is no biliary ductal dilation. Pancreas is normal. There is an indeterminate 1.7 cm lesion within the spleen. Adrenal glands are normal. The kidneys are normal without hydronephrosis. Bowel: The stomach and small bowel are normal without obstruction. The colon is unremarkable. There is mild dilation and wall thickening of the appendix with a focal stone at the origin. Appendix measures up to 0.9 cm with mild surrounding inflammatory stranding. Peritoneum: There is no intraperitoneal free fluid or free air. No suspicious lymphadenopathy. Vasculature: Normal without aneurysm. Musculoskeletal: No suspicious osseous lesion or compression fracture. Pelvis: The prostate gland is normal. The urinary bladder is normal. IMPRESSION: 1. Findings concerning for acute appendicitis without abscess or free air. Dictated on workstation # [id number] Dict: 08/02/22 1028 Trans: 08/02/22 1036 [facility] [id number] Interpreted by: TIM PAZ DO Electronically signed by: Assessment/Plan Assessment/Plan Admission Diagonsis Acute Appendicitis Admission Status: Other (Same Day Surgery) Assessment/Plan Acute Appendicitis Leukocytosis Plan Laparoscopic Appendectomy possible open and all other indicated procedures. Discussed benefits of surgery. Discussed major risks of surgery including infection, bleeding, bowel perforation. Patient understands risks and is wanting to proceed with surgery. Patient had additional questions regarding when he could go home, return to work precautions, and outpatient follow-up. All questions were answered to the satisfaction of patient. DARIN ANDERSON DO 08/02/22 1217: History of Present Illness History of Present Illness Reason for visit/HPI Surgery asked to consult regarding RLQ pain. HPI per ED: 37-year-old male presents the emergency department today for right lower abdominal pain. Symptoms started at about midnight and his mid lower abdominal pain and eventually settled in his right lower abdomen. He states the pain was severe at about 4 AM when it went off some. At that time was about an 8 out of 10. At the time of his presentation he rates it about a 3 out of 10. Described as sharp stabbing without radiation. No aggravating or alleviating factors. He has nausea without any vomiting. He states he feels like he has have a bowel movement but cannot tell. No testicular pain, penile symptoms. No changes in urination. He has never had similar symptoms in the past. Has had no surgeries. When I spoke to pt he states he is ready for surgery. Pain has improved and he understands he has appendicitis. Denied radiation of pain, it is worse with movement. Time Seen by a Provider: 11:59 Allergies and Home Medications Allergies Coded Allergies: No Known Drug Allergies (Unverified , 01/03/21) Patient Home Medication List Home Medication List Reviewed: Yes Past Twrdyfc-Jyynfr-Ohbsfm Hx Patient Social History Marrital Status: Employed/Student: employed Smoking Status: Former Smoker Smokeless type used: Chew Smokeless Tobacco Frequency: Former User Past Medical History Surgeries: Orthopedic, Vasectomy Currently Using CPAP: No Currently Using BIPAP: No Loss of Vision: Denies Family Medical History Diabetes (maternal side) All other past medical hx was denied by pt, but I am unable to alyssa that in this note Review of Systems Constitutional: chills; No diaphoresis EENTM: No blurred vision, No double vision, No vision loss Respiratory: No cough, No dyspnea on exertion Cardiovascular: No chest pain, No palpitations Gastrointestinal: RLQ; No constipation, No diarrhea; nausea; No vomiting Genitourinary: No discharge, No dysuria, No frequency Musculoskeletal: No joint pain, No joint swelling Skin: No change in color, No pruritus Psychiatric/Neurological: Denies Anxiety, Denies Depressed Physical Exam General Appearance: No Apparent Distress, WD/WN Eyes: Bilateral Eye PERRL, Bilateral Eye EOMI HEENT: Pharynx Normal, Moist Mucous Membranes; No Scleral Icterus (L), No Scleral Icterus (R) Neck: Non Tender, Supple Respiratory: Chest Non Tender, Lungs Clear, Normal Breath Sounds, No Accessory Muscle Use, No Respiratory Distress Cardiovascular: Regular Rate, Rhythm, No Murmur, Normal Peripheral Pulses Gastrointestinal: No Organomegaly, Soft, Guarding (voluntary), Tenderness (RLQ; (+) Mcburney, Rebound ) Rectal: Deferred Extremity: Non Tender, No Calf Tenderness, No Pedal Edema Neurologic/Psychiatric: Alert, Oriented x3, Normal Mood/Affect Skin: Normal Color, Warm/Dry Lymphatic: No Adenopathy (neck, axilla or groin) Assessment/Plan Assessment/Plan Admission Diagonsis Acute Appendicitis Admission Status: Other (Same Day Surgery) Assessment/Plan Acute Appendicitis Leukocytosis Plan Laparoscopic Appendectomy possible open and all other indicated procedures. Discussed benefits of surgery. Discussed major risks of surgery including pain, scar, infection, bleeding, bowel perforation. Patient understands risks and is wanting to proceed with surgery. Patient had additional questions regarding when he could go home, return to work precautions, and outpatient follow-up. All questions were answered to the satisfaction of patient. I reviewed the CT myself and went over pt's case with ED physician. He was given all options including no surgery; which is not a very good option. Supervisory-Addendum Brief Verification & Attestation Participated in pt care: history, MDM, physical Personally performed: exam, history, MDM, supervision of care Care discussed with: Medical Student Procedures: n/a Verification and Attestation of Medical Student E/M Service A medical student performed and documented this service. I then reviewed and verified all information documented by the medical student and made modifications to such information, when appropriate. I personally performed a physical exam, medical decision making and then discussed any differences between the notes and made revisions as necessary to create one note. Darin Anderson , 08/02/22 , 12:18 CARLOZ MCKEE Aug 02, 2022 11:39 DARIN ANDERSON DO Aug 02, 2022 12:17
[2022-08-02] MEDS ORDERED: BUP/EPI 0.5% 1:200,000 (MARCAINE) 10ML VIAL IJ ONE ×2 (11:57→13:10)
[2022-08-02] MEDS ORDERED: PIPERACILLIN SODIUM/TAZOBACTAM 4.5 GM in NS (IVPB) 100 ML IV NR (12:15)
[2022-08-02] MEDS: LACTATED RINGERS 1,000 ML IV PRN ×2 (12:30→13:27)
[2022-08-02] MEDS ORDERED: proPOfol 200 MG/20 ML (DIPRIVAN) VIAL IV ONE (12:34)
[2022-08-02] MEDS ORDERED: fentaNYL INJ 100 MCG/2 ML AMP ONE (12:34)
[2022-08-02] MEDS ORDERED: SUCCINYLCHOLINE INJ 100 MG/5 ML SYR/VIAL ONE (12:34)
[2022-08-02] MEDS ORDERED: LIDOCAINE PF 2% 5 ML (XYLOCAINE) VIAL ONE (12:34)
[2022-08-02] MEDS ORDERED: ROCURONIUM 10 MG/ML 5 ML SYRINGE IV ONE (12:34)
[2022-08-02] MEDS ORDERED: MIDAZOLAM 2 MG/2 ML (VERSED) VIAL ONE (12:35)
[2022-08-02] MEDS ORDERED: NEOSTIGMINE (BLOXIVERZ ) 1 MG/1ML 10 ML VIAL ONE (13:17)
[2022-08-02] MEDS ORDERED: GLYCOPYRROLATE 0.2 MG/ML (ROBINUL) 2 ML VIAL ONE ×2 (13:17→13:27)
[2022-08-02] MEDS ORDERED: SEVOFLURANE (ULTANE) 15 ML INHAL SOLN ONE (13:29)
[2022-08-02] MEDS ORDERED: fentaNYL INJ 100 MCG/2 ML AMP IVP ONE (13:45)
[2022-08-02] MEDS ORDERED: HYDROmorphone 2 MG/ML VIAL (DILAUDID) IV ONE (13:45)
[2022-08-02] MEDS ORDERED: ONDANSETRON 4 MG/2 ML (SDV) Z0FRAN IVP PRN (13:45)
--- NOTE | 2022-08-02 13:46 | Anesthesia-General Post-Op ---
General Patient Condition Mental Status/LOC: Same as Preop Cardiovascular: Satisfactory Nausea/Vomiting: Absent Respiratory: Satisfactory Pain: Controlled Complications: Absent Post Op Complications Complications None Follow Up Care/Instructions Patient Instructions None needed. Anesthesia/Patient Condition Patient Condition Patient is doing well, no complaints, stable vital signs, no apparent adverse anesthesia problems. No complications reported per nursing. SIMI PASTOR CRNA Aug 02, 2022 13:45
--- NOTE | 2022-08-02 13:50 | Progress Note-Post Operative ---
Post-Operative Progess Note Surgeon (s)/Event Host (s) Surgeon DARIN ANDERSON DO Event Host: NORA Askew Pre-Operative Diagnosis Acute Appy Post-Operative Diagnosis same Procedure & Operative Findings Date of Procedure 08/02/22 Procedure Performed/Findings PROCEDURE: Laparoscopic appendectomy. COMPLICATIONS: None. INDICATIONS: The patient is a 37 year old male who has been having right lower quadrant abdominal pain. Patient's exam consistent with appendicitis. I discussed risk and benefits of laparoscopic appendectomy and all indicated procedures with the possibility being a normal appendix. The patient understands the risks and benefits and wishes to proceed. Consent was signed on the chart. DESCRIPTION OF PROCEDURE: The patient was taken to the operating suite, prepped and draped in a sterile fashion. Timeout was performed. Local anesthetic was infiltrated just above the umbilicus and 11-blade scalpel was used to make a skin incision. Cautery was used to dissect down to the fascia and scored. Kochers were used to grasp and elevate it and the abdomen was then entered. A 0 Vicryl was placed in a [id number] fashion for closure at the end of the case. The balloon trocar was inserted into the abdomen and pneumoperitoneum was achieved. Under direct visualization of the laparoscope, a 5 mm trocar was placed in the suprapubic region and a 5 mm trocar was placed in the left lower quadrant. Appendix was located, could see inflammation around appendix and into the mesentery. The appendix was also thickened. The mesoappendix was then divided using the Ligasure in a stepwise fashion until it was only attached to the ceum; pictures were taken. Once at the base an Endo-KOBY 2.5 stapler was then fired across the base of the appendix. It was then placed in an Endobag and removed through the 12 mm trocar site. The abdomen was then irrigated and suctioned. The beginning of right inguinal hernia was noted. The abdomen was then desufflated and the trocars were removed. The 0 Vicryl placed at the beginning of the case was then tied closing the 12 mm fascial defect. The skin was then closed using 4-0 Monocryl in a subcuticular fashion. The abdomen was then washed and dried and Skin Affix was placed over the incisions. The patient tolerated the procedure well without any complications and was taken to the recovery room in stable condition. Anesthesia Type GET Estimated Blood Loss Estimated blood loss (mL): scant Specimens/Packing Specimens Removed appendix DARIN ANDERSON DO Aug 02, 2022 13:50
[2022-08-02] MEDS ORDERED: HYDROmorphone 2 MG/ML VIAL (DILAUDID) ONE (13:52)
[2022-08-02] MEDS ORDERED: ACHD5005 PO (13:53)
--- NOTE | 2022-08-02 13:54 | Discharge Inst-Surgical ---
Discharge Inst-Surgical Depart Medication/Instructions New, Converted or Re-Newed RX: Transmitted to Pharmacy Patient Instructions Follow up Appt: Make appointment for 1 week. [phone] Instructions: No lifting greater than 20 pounds. No strenuous activity. May shower in 24 hours, no tub bath or soaking. Use incentive spirometer at home as directed. No Smoking Skin/Wound Care: May remove bandages in am. You need to leave the Dermabond on incision it will fall off on it's own. Symptoms to Report: Appetite Changes, Extremity Discoloration, Numbness/Tingling, Swelling Increased, Bleeding Excessive, Eyesight Changes, Pain Increased, Urine Color Change, Constipation(Persistent), Fever over 101 degree F, Pain/Pressure in chest, Urinating Difficulty, Cough Up/Vomit Blood, Heart Beat Irreg/Pounding, Pain/Pressure in jaw, Cramps in feet or legs, Lightheadedness, Pain/Pressure in shoulder, Diarrhea(Persistent), Memory Changes Suddenly, Questions/Concerns, Weight gain consecutive days, Dizziness/Fainting, Nausea/Vomiting, Shortness of Breath, Weight gain over 2 pounds If questions or concerns contact your physician Or seek help at emergency department. Activity Activity as Tolerated: Yes Activity Instructions: Avoid Stress to Incision Driving Instructions: No Driving/Refer to Dr. Almaguer Discharge Diet: No Restrictions Diet After 24 Hours: Clear Liquid if Nauseous If Any Problems/Questions/Issu: Contact Your Physician, Go to Emergency Room Skin/Wound Care Infection Signs and Symptoms: Increased Redness, Foul Odor of Wound, Increased Drainage, Skin Itchy or Has a Rash, Increased Swelling, Temperature Above 101 F Wound Care Comment: heating pad to shoulder or neck tonight for pain Bathing Instructions: Shower Stitches/[place]/Dermabond Dis: Dermabond Ice Pack: Ice On and Off Site DARIN ANDERSON DO Aug 02, 2022 13:54
[2022-08-02] MEDS ORDERED: HYDROcodone/APAP 5 MG/325 MG (LORTAB) TAB PO ONE (14:00)
== END 2022-08-02 15:40 | disposition home or self-care (01) ==
LOC: EDUNIT# 08:31 → ER 08:33 → SDC 11:33
PROVIDERS: ATTEND Surgery
DX: K35.80 Unspecified acute appendicitis (principal); K38.8 Other specified diseases of appendix; Z87.891 Personal history of nicotine dependence
CPT/HCPCS: 36415; 74177; 80053; 81000; 85025; 88304